=== PATIENT | male | born 1940 | race Caucasian/White ===

== ENCOUNTER 2017-03-18 10:58 | Emergency (ER) | payer MEDICARE, BC ==
[2017-03-18] VITALS (23 sets, daily range): BP systolic 74–149; BP diastolic 48–73; PULSE 56–84; RESP 13–17; TEMP 100–101.7; O2SAT 99–100
[~2017-03-18] VITALS: Ht 172.7 cm; Wt 78.0 kg
[~2017-03-18 10:58] MED LIST: CARD180C5 OR; EZET10 PO; HYDR-2951 PO; PHEN100; RAMI10CA PO; [UNRECOGNIZED DRUG - CODE]
[2017-03-18] MEDS ORDERED: PROPOFOL 500 MG/50 ML INJ 50 ML ONE (11:05)
[2017-03-18] MEDS ORDERED: SODIUM CHLOR 0.9% 1000 ML INJ 1,000 ML IV SCH ×2 (11:15→12:55)
--- NOTE | 2017-03-18 11:24 | PD ---
HPI Chief Complaint: Neuro Symptoms/ Deficits Time Seen by Provider: 11:08 Travel History International Travel<30 days: No Contact w/Intl Traveler<30days: No Traveled to known affect area: No History of Present Illness HPI 77-year-old male with transfer from [facility] to [place] ED for evaluation of intracranial hemorrhage. Patient has been losing memory for the past several months. Patient has intermittent bleeding from the left ear for the past week. Patient's states the patient started having increasing altered mental status since yesterday afternoon. Patient was found almost unresponsive this morning. Patient's states the patient would not open his eyes, noncommunicating and only squeezed on her hand this morning. EMS was called. Patient was brought to the ED for evaluation. Patient has history of peripheral vascular disease status post stent placement on the right groin. Patient's on Coumadin. Patient was brought to [facility] emergency room. CT scan shows intracranial hemorrhage. Patient was given N Manuelito vitamin K, intubated and transferred to [place] to see neurosurgeon. PFS Past Medical History Hx Anticoagulant Therapy: Yes Cardiovascular Problems: Yes High Cholesterol: Yes Gastrointestinal Disorders: Yes Hypertension: Yes Musculoskeletal: Yes ?: Not Past Surgical History Abdominal Aneurysm Repair: Yes (LAST JULY) Social History Alcohol Use: Yes (WINE ) Tobacco Use: No (QUIT YEARS AGO) Substance Use: No Allergies-Medications (Allergen,Severity, Reaction): Coded Allergies: penicillin G (Unverified Allergy, Severe, Rash, 09/30/16) Reported Meds & Prescriptions Reported Meds & Active Scripts Active Reported Ramipril 10 Mg Cap 10 Mg PO DAILY Aspirin 81 Mg Chew 81 Mg CHEW DAILY [Coumadin] Zetia (Ezetimibe) 10 Mg Tab 10 Mg PO HS Cardizem CD 24 HR (Diltiazem CD 24 HR) 180 Mg Caper 180 Mg PO DAILY Review of Systems ROS Limitations: Intubated, Altered Mental Status Physical Exam Narrative GENERAL: Well-nourished, well-developed patient. SKIN: Focused skin assessment warm/dry. HEAD: Normocephalic. Patient has old blood on the left earlobe. No blood in the ear canal or the TM. EYES: No scleral icterus. No injection or drainage. Pupils 1 mm constricted sluggish reactive, equal. NECK: Supple, trachea midline. No JVD or lymphadenopathy. CARDIOVASCULAR: Regular rate and rhythm without murmurs, gallops, or rubs. RESPIRATORY: Breath sounds equal bilaterally with ventilation. No spontaneous respiration GASTROINTESTINAL: Abdomen soft, nondistended MUSCULOSKELETAL: No cyanosis, or edema. BACK: Nontender without obvious deformity. No CVA tenderness. Data Data Last Documented VS Vital Signs Date Time Temp Pulse Resp B/P (MAP) Pulse Ox O2 Delivery O2 Flow Rate FiO2 03/18/17 12:43 78 13 149/73 (98) 100 Auto-Vent 03/18/17 11:22 40 Orders Orders Propofol 500 Mg/50 Ml Inj (Diprivan 500 (03/18/17 11:05) Electrocardiogram (03/18/17 11:08) Complete Blood Count With Diff (03/18/17 11:08) Comprehensive Metabolic Panel (03/18/17 11:08) Prothrombin Time / Inr (Pt) (03/18/17 11:08) Act Partial Throm Time (Ptt) (03/18/17 11:08) Chest, Single Ap (03/18/17 11:08) Iv Access Insert/Monitor (03/18/17 11:08) Ecg Monitoring (03/18/17 11:08) Oximetry (03/18/17 11:08) Sodium Chlor 0.9% 1000 Ml Inj (Ns 1000 M (03/18/17 11:15) Cta Neck W Iv Contrast W 3d (03/18/17 ) Cta Brain W Iv Contrast W 3d (03/18/17 ) Propofol 1000 Mg/100 Ml Inj (Diprivan 10 (03/18/17 11:30) Nicardipine Inj (Cardene Inj) (03/18/17 11:30) Continue Gillespie/Suprapubic Cath (03/18/17 12:05) Restraints Non-Violent MINI.Q3H (03/18/17 12:20) Ct Brain W/O Iv Contrast(Rout) (03/18/17 12:37) Admit Order (Ed Use Only) (03/18/17 12:50) Labs Laboratory Tests Test 03/18/17 11:36 White Blood Count 11.0 TH/MM3 Red Blood Count 4.38 MIL/MM3 Hemoglobin 13.8 GM/DL Hematocrit 41.2 % Mean Corpuscular Volume 94.2 FL Mean Corpuscular Hemoglobin 31.5 PG Mean Corpuscular Hemoglobin Concent 33.4 % Red Cell Distribution Width 13.3 % Platelet Count 216 TH/MM3 Mean Platelet Volume 8.2 FL Neutrophils (%) (Auto) 87.0 % Lymphocytes (%) (Auto) 5.8 % Monocytes (%) (Auto) 6.9 % Eosinophils (%) (Auto) 0.1 % Basophils (%) (Auto) 0.2 % Neutrophils # (Auto) 9.6 TH/MM3 Lymphocytes # (Auto) 0.6 TH/MM3 Monocytes # (Auto) 0.8 TH/MM3 Eosinophils # (Auto) 0.0 TH/MM3 Basophils # (Auto) 0.0 TH/MM3 CBC Comment DIFF FINAL Differential Comment Prothrombin Time 12.5 SEC Prothromb Time International Ratio 1.2 RATIO Activated Partial Thromboplast Time 25.4 SEC Blood Urea Nitrogen 19 MG/DL Creatinine 1.16 MG/DL Random Glucose 97 MG/DL Total Protein 6.3 GM/DL Albumin 3.2 GM/DL Calcium Level 8.8 MG/DL Alkaline Phosphatase 39 U/L Aspartate Amino Transf (AST/SGOT) 16 U/L Alanine Aminotransferase (ALT/SGPT) 9 U/L Total Bilirubin 1.0 MG/DL Sodium Level 141 MEQ/L Potassium Level 3.6 MEQ/L Chloride Level 107 MEQ/L Carbon Dioxide Level 25.8 MEQ/L Anion Gap 8 MEQ/L Estimat Glomerular Filtration Rate 61 ML/MIN [facility] Medical Decision Making Medical Screen Exam Complete: Yes Emergency Medical Condition: Yes Interpretation(s) Last Impressions Chest X-Ray 03/18/17 1108 Signed Impressions: Service Date/Time: March 11:12 - CONCLUSION: Adequate placement of endotracheal tube. Clear lungs. Mathew Bernard MD 12:31 PM. CBC within normal limit. BUN 19. GFR 61. INR 1.2. Differential Diagnosis Differential diagnosis including intracranial hemorrhage. Narrative Course patient was transferred from [facility] for intracranial hemorrhage to see neurosurgeon. Cardene drip to keep systolic blood pressure less 140. Propofol drip for sedation. Patient was seen by neurosurgeon Dr. García. Patient will be transferred to [facility] in [place] for further treatment. Diagnosis Primary Impression: Intracranial hemorrhage Additional Impression: Dural arteriovenous malformation Additional Instructions: Patient will be transferred to [facility] in [place] for further treatment. Disposition: 70 TRANSFER TO OTHER FACILITY Condition: Serious Junito Moraes MD Mar 18, 2017 11:24
[2017-03-18] MEDS ORDERED: PROPOFOL 1000 MG/100 ML INJ 100 ML IV PRN ×2 (11:30→13:00)
[2017-03-18] MEDS ORDERED: niCARdipine INJ 25 MG in SODIUM CHLOR 0.9% 250 ML INJ 240 ML IV PRN (11:30)
--- NOTE | 2017-03-18 11:32 | RADRPT ---
EXAM DATE/TIME: 03/18/2017 11:12 [facility] COMPARISON: No previous studies available for comparison. INDICATIONS : Shosrt of breath. MEDICAL HISTORY : Hypercholesterolemia. Hypertension Gastrointestinal disorders , muscoskeletal disorders SURGICAL HISTORY : Abdominal aortic aneurysm repair ENCOUNTER: Initial ACUITY: 1 day PAIN SCORE: Non-responsive. LOCATION: Bilateral chest FINDINGS: A single view of the chest demonstrates diminished lung volumes without evidence of mass, infiltrate or effusion. Endotracheal tube 5 cm above the marychuy. The cardiomediastinal contours are unremarkabl e. Osseous structures are intact. CONCLUSION: Adequate placement of endotracheal tube. Clear lungs. Mathew Bernard MD on March 18, 2017 at 11:29 Board Certified Radiologist. This report was verified electronically.
[2017-03-18 12:08] LABS: AUTOMATED NEUTROPHIL # 9.6 TH/MM3 (1.8-7.7); BASOPHIL % 0.2 % (0.0-2.0); EOSINOPHIL % 0.1 % (0.0-4.0); HEMATOCRIT 41.2 % (39.0-51.0); HEMOGLOBIN 13.8 GM/DL (13.0-17.0); LYMPH % 5.8 % (9.0-44.0); LYMPHOCYTE # 0.6 TH/MM3 (1.0-4.8); MEAN CELL VOLUME 94.2 FL (80.0-100.0); MEAN CORPUSCULAR HEMOGLOBIN 31.5 PG (27.0-34.0); MEAN CORPUSCULAR HGB CONC 33.4 % (32.0-36.0); MEAN PLATELET VOLUME 8.2 FL (7.0-11.0); MONO % 6.9 % (0.0-8.0); MONOCYTE # 0.8 TH/MM3 (0-0.9); PLATELET COUNT 216 TH/MM3 (150-450); RED BLOOD COUNT 4.38 MIL/MM3 (4.50-5.90); RED CELL DISTRIBUTION WIDTH 13.3 % (11.6-17.2)
[2017-03-18 12:16] LABS: INTERNATIONAL NORMALIZED RATIO 1.2 RATIO; PROTHROMBIN TIME - PATIENT 12.5 SEC (9.8-11.6)
[2017-03-18 12:22] LABS: ALBUMIN 3.2 GM/DL (3.4-5.0); ALT (GPT) 9 U/L (12-78); AST (GOT) 16 U/L (15-37); BICARBONATE 25.8 MEQ/L (21.0-32.0); BLOOD UREA NITROGEN 19 MG/DL (7-18); CALCIUM 8.8 MG/DL (8.5-10.1); CHLORIDE 107 MEQ/L (98-107); CREATININE 1.16 MG/DL (0.60-1.30); GLOMERULAR FILTRATION RATE 61 ML/MIN (>89); GLUCOSE,RANDOM 97 MG/DL (74-106); SODIUM (NA) 141 MEQ/L (136-145)
[2017-03-18 12:24] LABS: ALKALINE PHOSPHATASE 39 U/L (45-117); TOTAL PROTEIN 6.3 GM/DL (6.4-8.2)
[2017-03-18] MEDS ORDERED: CHLORHEXIDINE GLUCONATE 2 % 1 PACK (2 CLOTHS) TOP PRN (13:00)
[2017-03-18] MEDS ORDERED: RESP: ALBUTEROL 2.5 MG/IPRATROPIUM 0.5 MG NEB (PRN) INH (13:00)
[2017-03-18] MEDS ORDERED: MISCELLANEOUS NURSING INFORMATION XX SCH (13:00)
[2017-03-18] MEDS ORDERED: SODIUM CHLORIDE 0.9% FLUSH 10 ML FLUSH IV FLUSH PRN (13:00)
[2017-03-18] MEDS ORDERED: ACETAMINOPHEN 325 MG TAB PO PRN (13:00)
--- NOTE | 2017-03-18 13:29 | RADRPT ---
EXAM DATE/TIME: 03/18/2017 13:05 [facility] COMPARISON: CT BRAIN W/O CONTRAST, May 22, 2011, 4:27. INDICATIONS : Hemorrhage RADIATION DOSE: 52.69 CTDIvol (mGy) MEDICAL HISTORY : Cardiovascular disease. Hypertension. SURGICAL HISTORY : Abdomenal aneursym repair,orbit repair,sade coiling ENCOUNTER: Initial ACUITY: 1 day PAIN SCALE: Non-responsive LOCATION: cranial TECHNIQUE: Multiple contiguous axial images were obtained of the head. Using automated exposure control and adj ustment of the mA and/or kV according to patient size, radiation dose was kept as low as reasonably a chievable to obtain optimal diagnostic quality images. DICOM format image data is available electro nically for review and comparison. FINDINGS: There is a large acute high density hemorrhage centered in the left frontal and parietal lobe wi th surrounding edema. There is mass effect on the left lateral ventricle with midline shift to the le ft of approximately 11 mm at the level of third ventricle. There is evidence of subfalcine herniation anteriorly as well. The suprasellar cistern remains patent with mild asymmetry. The posterior fossa is otherwise intact. There is streak artifact from notable clips in the left temporal fossa. There is diffuse moderate atrophic change and chronic small vessel ischemic changes. CONCLUSION: Acute large, high density hemorrhage in the left frontal and parietal lobe with mass effect, midline shift and subfalcine herniation. Dylan Madrigal MD on March 18, 2017 at 13:22 Board Certified Radiologist. This report was verified electronically.
[2017-03-18] MEDS ORDERED: IOHEXOL 350 MG/ML 10 ML VIAL (for RAD DIAG) IVCONTRAST ONE (13:42)
--- NOTE | 2017-03-18 14:24 | RADRPT ---
EXAM DATE/TIME: 03/18/2017 13:08 [facility] COMPARISON: No previous studies available for comparison. INDICATIONS : Hemorrage IV CONTRAST: 76 cc Omnipaque 350 (iohexol) IV ; Cumulative dose for multiple exams. RADIATION DOSE: 9.82 CTDIvol (mGy) ; Combined studies MEDICAL HISTORY : Cardiovascular disease. Hypertension. SURGICAL HISTORY : Abdominal aortic aneurysm brin coiling,orbit ENCOUNTER: Initial ACUITY: 1 day PAIN SCALE: Non-responsive LOCATION: CTA NECK Elevated flow velocities and ICA/CCA ratios have been found to correlate with increased degrees of vessel stenosis, calculated as percentage of diameter relative to a normal segment of distal ICA/CCA. TECHNIQUE: Volumetric scanning was performed using a multirow detector CT scanner. The data was post processed with a variety of visualization algorithms including full-volume maximum intensity projection, multip lanar sliding thin-slab reformation, curved-planar reformation, and surface-rendering techniques. Us ing automated exposure control and adjustment of the mA and/or kV according to patient size, radiatio n dose was kept as low as reasonably achievable to obtain optimal diagnostic quality images. DICOM f ormat image data is available electronically for review and comparison. FINDINGS: AORTIC ARCH: There is a three-vessel origin of the great vessels from the aorta. No evidence of ostial narrowing. RIGHT CAROTID: The common carotid artery is intact. Mild to moderate plaque within the proximal right internal carot id artery with 40-50% narrowing. The external carotid artery is intact. LEFT CAROTID: The common carotid artery is intact. The mild plaque within the left carotid bulb. No significant ruslan nosis. The external carotid artery is intact. VERTEBRALS: The vertebral arteries have a symmetric diameter. No stenotic lesions are seen. CONCLUSION: 1. Mild narrowing within the right proximal internal carotid artery. 2. No significant stenosis within the left internal carotid artery. Mathew Bernard MD on March 18, 2017 at 14:19 Board Certified Radiologist. This report was verified electronically.
--- NOTE | 2017-03-18 14:30 | RADRPT ---
EXAM DATE/TIME: 03/18/2017 13:08 [facility] COMPARISON: CT BRAIN W/O CONTRAST, March 18, 2017, 13:05. CTA BRAIN W 3D RECON, May 19, 2011, 17:22. INDICATIONS : Hemorrage IV CONTRAST: 76 cc Omnipaque 350 (iohexol) IV ; Cumulative dose for multiple exams. RADIATION DOSE: 9.82 CTDIvol (mGy) ; Combined studies MEDICAL HISTORY : Cardiovascular disease. Hypertension. SURGICAL HISTORY : Abdominal aortic aneurysm repair coiling,orbit ENCOUNTER: Initial ACUITY: 1 day PAIN SCALE: 0/10 LOCATION: Cta brain TECHNIQUE: Volumetric scanning was performed using a multi-row detector CT scanner. The data was post processed with a variety of visualization algorithms including full volume maximum intensity projection, multi -planar sliding thin slab reformation, curved planar reformation, and surface rendering techniques. Using automated exposure control and adjustment of the mA and/or kV according to patient size, radiat ion dose was kept as low as reasonably achievable to obtain optimal diagnostic quality images. DICO M format image data is available electronically for review and comparison. FINDINGS: There is streak artifact involving the middle cranial fossa secondary to prior [place] embolization of a dural based AVM. This generates streak artifact obscuring much of this region. When compared to the prior examination there is no dilated vascular channels within the visualized portions of the middle cranial fossa as seen on the prior study. On the prior exam the middle meningeal artery measured near ly 3 mm in diameter. Today this vessel measures 1 mm in diameter. There is deviation of the anterior cerebral arteries towards the patient's right secondary to the large intraparenchymal hemorrhage. No significant vasospasm observed. No aneurysm appreciated. CONCLUSION: 1. Large intraparenchymal hemorrhage involving the left frontal lobe generating mass effect and displ acement as detailed above. 2. Prior Neil embolization of a dural based AVM involving the middle cranial fossa on the left. This generates beam hardening artifact limiting the evaluation. No discernible vascular channels observed to suggest a recurrent AVM although one is certainly suspected. Dedicated cerebral angiography is nee ded to further evaluate. Kwan Bland Jr., MD on March 18, 2017 at 13:34 Board Certified Radiologist. This report was verified electronically.
[2017-03-18] MEDS ORDERED: ACETAMINOPHEN 650 MG SUPP RECTAL ONE (15:30)
[2017-03-18] MEDS ORDERED: SODIUM CHLOR 0.9% 1000 ML INJ 1,000 ML IV ONE (15:30)
[2017-03-18] MEDS ORDERED: EZET10 PO (15:42)
[2017-03-18] MEDS ORDERED: COUMADIN (15:42)
[2017-03-18] MEDS ORDERED: CARD180C5 PO (15:42)
[2017-03-18] MEDS ORDERED: ASPI-516 CHEW (15:42)
[2017-03-18] MEDS ORDERED: RAMI10CA PO (15:42)
[2017-03-18] MEDS ORDERED: levETIRAcetam INJ 100 ML IV ONE (16:45)
[2017-03-18] MEDS ORDERED: MANNITOL 12.5 GM/50 ML VIAL IV ONE (16:45)
--- NOTE | 2017-03-18 17:08 | PD.CONS ---
History of Present Illness Service Neurosurgery Consult Requested By Emergency room. Dr. Moraes Reason for Consult Intracranial hemorrhage. 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 The patient's states that for the past 4-6 months she has noted relatively mild progressive memory loss. For the past 6-8 weeks he has had some speech difficulty in which he cannot think of warts that he wants to say or substitutes the incorrect word. He has had no headaches. This morning when she awoke at 6:30 she noted that he was awake and would look at her but was nonverbal. He reached up and grabbed her arm. She had him taken to [facility] emergency room where a CT scan revealed a left frontal intracranial hemorrhage. He apparently remained awake in the emergency room but was intubated for transport to [place] emergency room for neurosurgical evaluation. No seizures reported. No emesis. Review of Systems Unable to obtain due to decreased mental status. Recent medical issues as noted above according to the patient's . Past Family Social History Allergies: Coded Allergies: penicillin G (Unverified Allergy, Severe, Rash, 09/30/16) Past Medical History Hypertension Hyperlipidemia Previous abdominal aortic aneurysm. Peripheral vascular disease Past Surgical History Abdominal aortic aneurysm repair-[facility] Lower extremity stent placement for peripheral vascular disease-[facility] Embolization left dural AVM-May 2011 Reported Medications Reported Meds & Active Scripts Active Reported Ramipril 10 Mg Cap 10 Mg PO DAILY Aspirin 81 Mg Chew 81 Mg CHEW DAILY [Coumadin] Zetia (Ezetimibe) 10 Mg Tab 10 Mg PO HS Cardizem CD 24 HR (Diltiazem CD 24 HR) 180 Mg Caper 180 Mg PO DAILY Family History Patient indicates possible cerebral aneurysm in another family member. Social History Former smoker. Occasional wine with meals Physical Exam Vital Signs Vital Signs Date Time Temp Pulse Resp B/P (MAP) Pulse Ox O2 Delivery O2 Flow Rate FiO2 03/18/17 16:42 71 120/64 (82) 03/18/17 15:57 70 131/68 (89) 03/18/17 15:55 72 130/69 (89) 03/18/17 15:44 70 126/69 (88) 03/18/17 15:36 68 119/62 (81) 03/18/17 15:25 101.7 63 102/59 (73) 03/18/17 15:21 63 97/56 (70) 03/18/17 15:20 66 85/54 (64) 03/18/17 15:00 56 74/48 (57) 03/18/17 14:45 78 115/62 (79) 03/18/17 14:45 78 115/62 03/18/17 14:30 80 125/66 (85) 03/18/17 14:15 84 129/66 (87) 03/18/17 14:07 101.0 83 14 134/67 (89) 100 Auto-Vent 03/18/17 13:44 82 145/72 03/18/17 13:24 100 100 03/18/17 13:22 99 40 03/18/17 13:20 79 149/72 03/18/17 12:43 78 13 149/73 (98) 100 Auto-Vent 03/18/17 12:42 77 156/69 03/18/17 11:26 100 Auto-Vent 03/18/17 11:22 40 03/18/17 11:16 75 17 148/65 (92) 100 Auto-Vent 40 03/18/17 11:12 100 40 03/18/17 11:03 137/ Physical Exam GENERAL: This is a well-nourished, well-developed patient, intubated in the emergency room. SKIN: No rashes, ecchymoses or lesions. Cool and dry. HEAD: Atraumatic. Normocephalic. No temporal or scalp tenderness. EYES: Sclerae clear and nonicteric ENT: No facial edema or ecchymosis. Indicated. NECK: Trachea midline. No JVD or lymphadenopathy. Supple CARDIOVASCULAR: Regular rate and rhythm without murmurs, gallops, or rubs. RESPIRATORY: Clear to auscultation. Breath sounds equal bilaterally. No wheezes , rales, or rhonchi. GASTROINTESTINAL: Abdomen soft, nondistended. No hepato-splenomegaly, or palpable masses. No guarding. MUSCULOSKELETAL: Extremities without clubbing, cyanosis, or edema. No joint edema noted. No calf tenderness. Dorsalis pedis 2+ bilateral NEUROLOGICAL: Intubated, sedated on propofol. Pupils 2-3 mm minimally reactive. He opens his eyes mild to moderate to voice. He tracks mild to the right and left with conjugate extraocular movements to voice. He flexes the upper extremities well to moderate strength spontaneous and with sternal rub but and grasps the hands mild bilateral, but is not definitely following commands. No ankle clonus. Plantar responses are neutral bilateral Laboratory Laboratory Tests Test 03/18/17 11:36 White Blood Count 11.0 Red Blood Count 4.38 Hemoglobin 13.8 Hematocrit 41.2 Mean Corpuscular Volume 94.2 Mean Corpuscular Hemoglobin 31.5 Mean Corpuscular Hemoglobin Concent 33.4 Red Cell Distribution Width 13.3 Platelet Count 216 Mean Platelet Volume 8.2 Neutrophils (%) (Auto) 87.0 Lymphocytes (%) (Auto) 5.8 Monocytes (%) (Auto) 6.9 Eosinophils (%) (Auto) 0.1 Basophils (%) (Auto) 0.2 Neutrophils # (Auto) 9.6 Lymphocytes # (Auto) 0.6 Monocytes # (Auto) 0.8 Eosinophils # (Auto) 0.0 Basophils # (Auto) 0.0 CBC Comment DIFF FINAL Differential Comment Prothrombin Time 12.5 Prothromb Time International Ratio 1.2 Activated Partial Thromboplast Time 25.4 Blood Urea Nitrogen 19 Creatinine 1.16 Random Glucose 97 Total Protein 6.3 Albumin 3.2 Calcium Level 8.8 Alkaline Phosphatase 39 Aspartate Amino Transf (AST/SGOT) 16 Alanine Aminotransferase (ALT/SGPT) 9 Total Bilirubin 1.0 Sodium Level 141 Potassium Level 3.6 Chloride Level 107 Carbon Dioxide Level 25.8 Anion Gap 8 Estimat Glomerular Filtration Rate 61 Result Diagram: 03/18/17 1136 03/18/17 1136 Imaging Last Impressions Head CT 03/18/17 1237 Signed Impressions: Service Date/Time: March 13:05 - CONCLUSION: Acute large , high density hemorrhage in the left frontal and parietal lobe with mass effect , midline shift and subfalcine herniation. Dylan Madrigal MD Chest X-Ray 03/18/17 1108 Signed Impressions: Service Date/Time: March 11:12 - CONCLUSION: Adequate placement of endotracheal tube. Clear lungs. Mathew Bernard MD Neck CTA 03/18/17 0000 Signed Impressions: Service Date/Time: March 13:08 - CONCLUSION: 1. Mild narrowing within the right proximal internal carotid artery. 2. No significant stenosis within the left internal carotid artery. Mathew Bernard MD Head CTA 03/18/17 0000 Signed Impressions: Service Date/Time: March 13:08 - CONCLUSION: 1. Large intraparenchymal hemorrhage involving the left frontal lobe generating mass effect and displacement as detailed above. 2. Prior [place] embolization of a dural based AVM involving the middle cranial fossa on the left. This generates beam hardening artifact limiting the evaluation. No discernible vascular channels observed to suggest a recurrent AVM although one is certainly suspected. Dedicated cerebral angiography is needed to further evaluate. Kwan Bland Jr., MD Assessment and Plan Assessment and Plan Impression: 1. Acute left frontal intracranial hemorrhage in patient with previous history of left dural AVM. Status post embolization in May 2011 2. Hypertension 3. Peripheral vascular disease 4. Hyperlipidemia Plan: Patient's findings were discussed with interventional radiology at [facility]. It was recommended that the patient be transferred to a tertiary care center for definitive treatment of the probable recurrent left frontal AVM. Patient was discussed with neurosurgery at [facility]. Patient is accepted for transfer. Follow-up examination prior to transfer indicates the patient to be intubated, sedated with propofol. He opens his eyes briefly to voice and tracks to the left and right with conjugate gaze. He flexes the upper extremities moderate spontaneous as well as to sternal rub and has a mild bilateral grasp but not definitely to command. Pupils remain 2- 3 mm and minimally reactive. Follow-up CT scan reveals some enlargement of the intracranial hemorrhage to now approximately 5 cm with 11 mm midline shift primarily in the frontal region with no definite effacement of the cisterns or significant brainstem compression. Blood pressure presently 110-120. Repeat INR 1.2. Patient is being loaded with Keppra. Nicardipine drip is in place titrating to blood pressure 110-140. Arranging for air transport. Based on follow-up examination the patient is felt stable for emergent transfer to [facility]. Derrick García MD Mar 18, 2017 17:08
[2017-03-18] MEDS ORDERED: MANNITOL INJ 50 ML ONE (17:35)
[2017-03-18] MEDS ORDERED: CHLORHEXIDINE 0.12% (ORAL KIT) 15 ML CUP MT SCH (20:00)
[2017-03-18] MEDS ORDERED: SODIUM CHLORIDE 0.9% FLUSH 10 ML FLUSH IV FLUSH SCH (21:00)
[2017-03-18] MEDS ORDERED: FAMOTIDINE 20 MG TAB TUBE SCH (21:00)
[2017-03-19] MEDS ORDERED: CHLORHEXIDINE GLUCONATE 2 % 1 PACK (2 CLOTHS) TOP SCH (04:00)
--- NOTE | 2017-03-19 19:39 | EKG ---
Date Performed: 03/18/2017 Time Performed: 12:29:46 PTAGE: 77 years EKG: Sinus rhythm NORMAL ECG Since the prior tracing, there has been no significant change PREVIOUS TRACING : 05/19/2011 22.01 DOCTOR: Mark Meyer Interpretating Date/Time 03/19/2017 19:37:58
== END 2017-03-18 18:46 | disposition short-term general hospital (02) ==
LOC: NEPC 10:58 → NEDA 12:53 → UNDOADMIN 12:53
DX: I62.9 Nontraumatic intracranial hemorrhage, unspecified (principal); Q28.2 Arteriovenous malformation of cerebral vessels; E78.00 Pure hypercholesterolemia, unspecified; I73.9 Peripheral vascular disease, unspecified; I10 Essential (primary) hypertension; Z79.01 Long term (current) use of anticoagulants; Z87.891 Personal history of nicotine dependence
CPT/HCPCS: 70450; 70496; 70498; 71045; 80053; 85025; 85610; 85730; 93005; 96361; 96365; 96366; 96367; 96375; 99285; A0431; A0436; J1953; J2150; J7030; J7050; Q9967